=== PATIENT | female | born 1970 ===

== ENCOUNTER 2018-05-25 16:31 | Emergency (ER) | payer SELFPAY ==
--- NOTE | 2018-05-25 17:18 | ED PDOC ---
HPI: SOB/CHF/COPD Time Seen by Provider: 05/25/18 16:40 Chief Complaint (Nursing): Shortness Of Breath Chief Complaint (Provider): Shortness Of Breath History Per: Patient Onset/Duration Of Symptoms: Days (x2) Current Symptoms Are (Timing): Still Present Exacerbating Factor(s): Exertion, Laying Flat Additional Complaint(s): 48 year old female with a history of obstructive sleep apnea and hypothyroidism presents to the ED with two days of shortness of breath. Patient reports symptoms have been progressing for a long time, but have never been this bad. She states symptoms are worse with any exertion or when lying down flat. Patient also has intermittent unilateral left leg swelling which she states are due to varicose veins. Patient denies any chest pain, fever, or runny nose, but reports dry cough. She has been scheduled for a sleep study in May due to obstructive sleep apnea. PMD: Clinic Past Medical History Reviewed: Historical Data, Nursing Documentation, Vital Signs Vital Signs: Last Vital Signs Temp 98.1 F 05/25/18 16:37 Pulse 69 05/25/18 16:37 Resp 18 05/25/18 16:37 BP 134/72 05/25/18 16:37 Pulse Ox 99 05/25/18 16:37 - Medical History PMH: Hypothyroidism, Sleep Apnea (obstructive) Denies: HIV, Chronic Kidney Disease - Surgical History Surgical History: (x 1) - Family History Family History: States: Unknown Family Hx - Social History Current smoker - smoking cessation education provided: No Ex-Smoker (has not smoked in the last 12 months): No Alcohol: None Drugs: Denies - Allergies Allergies/Adverse Reactions: Allergies Allergy/AdvReac Type Severity Reaction Status Date / Time No Known Allergies Allergy Verified 04/28/16 11:53 Review of Systems ROS Statement: Except As Marked, All Systems Reviewed And Found Negative Constitutional: Negative for: Fever ENT: Positive for: Other (no runny nose) Cardiovascular: Negative for: Chest Pain Respiratory: Positive for: Cough (dry), Shortness of Breath Musculoskeletal: Positive for: Other (left leg swelling) Physical Exam - Reviewed Nursing Documentation Reviewed: Yes Vital Signs Reviewed: Yes - Physical Exam Appears: Positive for: Non-toxic, Uncomfortable Head Exam: Positive for: ATRAUMATIC, NORMOCEPHALIC Skin: Positive for: Warm, Dry Eye Exam: Positive for: EOMI, PERRL ENT: Negative for: Pharyngeal Erythema, Tonsillar Exudate Neck: Positive for: Painless ROM, Supple Cardiovascular/Chest: Positive for: Regular Rate, Rhythm. Negative for: Murmur Respiratory: Positive for: Normal Breath Sounds, Respiratory Distress (mild). Negative for: Accessory Muscle Use, Rales, Rhonchi, Wheezing Gastrointestinal/Abdominal: Positive for: Soft, Other (morbidly obese). Negative for: Tenderness Back: Positive for: Normal Inspection. Negative for: Decreased ROM Extremity: Positive for: Other (left lower leg edema and visible varicose veins). Negative for: Calf Tenderness Lymphatic: Negative for: Adenopathy Neurological/Psych: Positive for: Awake. Negative for: Motor/Sensory Deficits - Laboratory Results Result Diagrams: 05/25/18 17:15 05/25/18 18:17 - ECG ECG: Positive for: Interpreted By Me ECG Rhythm: Positive for: Normal QRS, Normal ST Segment, Sinus Rhythm O2 Sat by Pulse Oximetry: 99 (RA) Pulse Ox Interpretation: Normal - Radiology X-Ray: Interpreted by Ms X-Ray Interpretation: No Acute Disease - Progress ED Course And Treament: Name: RHETT CANDELARIA Exam Date: May 25, 2018 7:37:19 PM EDT Modality Type: CT\SR Description: CTA CHEST FOR PE Gender: F Laterality: Not applicable : 74 Referring Physician: Emergency Room direct number EXAM: CTA Chest with Intravenous Contrast for Pulmonary Embolism CLINICAL HISTORY: Sob, unilateral leg swelling TECHNIQUE: Axial CTA images of the chest with intravenous contrast using a pulmonary embolism protocol. Reconstructed images were created and reviewed. 393.00 mGy-cm CONTRAST: With; [id number] 99ML was administered without incident. COMPARISON: None provided. FINDINGS: PULMONARY ARTERIES No evidence of central or segmental pulmonary embolism is seen. AORTA There is no evidence for aneurysm or dissection of the thoracic aorta. LUNGS There is mild groundglass opacity both lungs and mild bullous changes. PLEURAL SPACES No evidence of pneumothorax. No pleural effusion. HEART Heart size is within normal limits. No significant pericardial effusion. LYMPH NODES No lymphadenopathy is evident. BONES No focal osseous abnormality or acute fracture. UPPER ABDOMEN Images of the upper abdomen are unremarkable. IMPRESSION: No evidence of pulmonary embolic disease. Mild groundglass opacity and bullous change both lungs. Electronically signed on May 25, 2018 8:03:19 PM EDT by: Pipe Jain M.D., Certified by [employer], Diagnostic Radiology Re-evaluation Time: 20:32 Condition: Improved (DW pt findings and plan of care. Stable for discharge.) Medical Decision Making Medical Decision Making: Time: 1655 Impression: Shortness of breath Differential diagnoses include but are not limited to: PE, CHF, pneumonia, effusion, bronchitis Plan: --Type and screen --CT Angio chest --EKG --BNP --CMP --Free T4 --magnesium --phosphorous --T3 --TSH --Troponin --U preg --U dip --CBC --PTT --PT/INR --CXR --US duplex Time: 1912 US Duplex: FINDINGS: DEEP VEINS: The common femoral, superficial femoral, and popliteal veins are echolucent and compressible. There is normal color Doppler flow throughout. The visualized calf veins appear patent. SUPERFICIAL VEINS: The visualized greater saphenous vein is patent. SOFT TISSUES: No popliteal fossa cyst or other abnormalities. IMPRESSION: No deep venous thrombosis evident on left lower extremity examination. Labs unremarkable CT neg for PE Pt feels better on reevaluation DW pt findings and pt stable for discharge to continue eval for sleep apnea. Pt eager to go home. - Scribe Attestation: Documented by Birdie Lazar, acting as a scribe for Ana Marion MD. Provider Scribe Attestation: All medical record entries made by the Scribe were at my direction and personally dictated by me. I have reviewed the chart and agree that the record accurately reflects my personal performance of the history, physical exam, medical decision making, and the department course for this patient. I have also personally directed, reviewed, and agree with the discharge instructions and disposition. Disposition - Clinical Impression Clinical Impression: Dyspnea Counseled Patient/Family Regarding: Studies Performed, Diagnosis, Need For Followup - Disposition Referrals: [facility] [Outside] Disposition: Routine/Home Disposition Time: 20:35 Condition: IMPROVED Instructions: Shortness of Breath (Dyspnea) (DC) Print Language: LAO
[2018-05-25 17:34] LABS: INR 1.1; PROTHROMBIN TIME 12.8 Seconds (9.8-13.1)
[2018-05-25 17:36] LABS: BASO % 0.5 % (0.0-2.0); EOS # 0.2 K/uL (0.0-0.7); EOS % 2.7 % (0.0-4.0); HEMOGLOBIN 13.9 g/dL (12.0-16.0); LYMPH # 1.9 K/uL (1.0-4.3); LYMPH % 23.1 % (20.0-40.0); MEAN CELL VOLUME 94.4 fl (81.0-99.0); MEAN CORPUSCULAR HEMOGLOBIN 31.7 pg (27.0-31.0); MEAN CORPUSCULAR HGB CONC 33.6 g/dL (33.0-37.0); MEAN PLATELET VOLUME 10.8 fl (7.2-11.7); MONO # 0.7 K/uL (0.0-0.8); MONO % 8.3 % (0.0-10.0); NEUT # 5.3 K/uL (1.8-7.0); NEUT % 65.4 % (50.0-75.0); NRBC % 0.2 % (0.0-0.0); PARTIAL THROMBOPLASTIN TIME 35.4 Seconds (25.6-37.1); RBC 4.39 Mil/uL (3.80-5.20); RED CELL DISTRIBUTION WIDTH 13.2 % (11.5-14.5); WHITE BLOOD COUNT 8.2 K/uL (4.8-10.8)
[2018-05-25] MEDS ORDERED: Sodium Chloride 0.9% 50 ML IV ONE (18:30)
[2018-05-25] MEDS ORDERED: Iodixanol 320 MG/ML 100 ML BOTTLE IV ONE (18:30)
[2018-05-25 18:42] LABS: ALB/GLOB RATIO 1.1 (1.0-2.1); ALBUMIN 4.2 g/dL (3.5-5.0); ALT/SGPT 39 U/L (9-52); AST/SGOT 42 U/L (14-36); BLOOD UREA NITROGEN 13 mg/dl (7-17); CALCIUM 9.8 mg/dL (8.4-10.2); GFR NON-AFRICAN AMERICAN > 60
[2018-05-25 20:59] VITALS: BP 141/83; PULSE 66; RESP 18; TEMP 98.2; O2SAT 98
--- NOTE | 2018-05-26 11:36 | CT ---
Date of service: 05/25/2018 PROCEDURE: CT Chest with contrast (Pulmonary Angiogram) HISTORY: SOB and unilateral leg swelling COMPARISON: None available. TECHNIQUE: Axial computed tomography images were obtained of the chest in the pulmonary arterial phase of enhancement. Coronal and sagittal reformatted images were created and reviewed. Intravenous contrast dose: 99 cc Visipaque 320 however a has a common Radiation dose: Total exam DLP = 393.86 mGy-cm. This CT exam was performed using one or more of the following dose reduction techniques: Automated exposure control, adjustment of the mA and/or kV according to patient size, and/or use of iterative reconstruction technique. FINDINGS: This examination is limited to evaluate pulmonary embolus due to suboptimal opacification of the pulmonary arteries.. This study is further limited by morbid obesity. PULMONARY ARTERIES: Visualized pulmonary trunk, right and left main, lobar, ends of dental branches of the pulmonary arteries are relatively well opacified with no definitive evidence to suggest acute central pulmonary embolus. Note however that the subsegmental branches are poorly delineated. Pulmonary trunk measures approximately 2.8 cm; rule out underlying mild pulmonary arterial hypertension.. AORTA: No acute findings. No thoracic aortic aneurysm. Ascending thoracic aorta measures approximately 2.6 cm and descending thoracic aorta measures approximately 2.0 cm. Minimal aortic atherosclerotic calcification or mural plaque present. LUNGS: There are patchy areas of ground-glass opacity seen throughout the upper and lower lobes. Mild discoid type atelectasis and/or scarring seen in the left lingular region. PLEURAL SPACES: Unremarkable. No effusion or pneumothorax. HEART: Heart is enlarged. No significant pericardial effusion. LYMPH NODES: No significant mediastinal or hilar lymphadenopathy. Trachea midline and patent with no large central endoluminal lesions. There is a small hiatal hernia. BONES, CHEST WALL: Mild multilevel degenerative spondylosis of the thoracic spine. OTHER FINDINGS: Unremarkable. IMPRESSION: Limited study as above. No definitive evidence of acute central pulmonary embolus. There are patchy areas of ground-glass opacity seen throughout the upper and lower lobes. Mild cardiomegaly. Rule out mild underlying pulmonary arterial hypertension.
--- NOTE | 2018-05-26 13:04 | RAD ---
Date of service: 05/25/2018 HISTORY: SOB COMPARISON: Comparison chest dated 04/04/2016 TECHNIQUE: Chest PA and lateral views FINDINGS: LUNGS: No active pulmonary disease. PLEURA: No significant pleural effusion identified. No pneumothorax apparent. CARDIOVASCULAR: No aortic atherosclerotic calcification present. Normal cardiac size. No pulmonary vascular congestion. OSSEOUS STRUCTURES: Minor multilevel degenerative spondylosis of the thoracic spine VISUALIZED UPPER ABDOMEN: Normal. OTHER FINDINGS: None. IMPRESSION: No active disease.
--- NOTE | 2018-05-26 14:15 | US ---
Date of service: 2018-05-25 18:19:15 PROCEDURE: Left lower extremity venous duplex Doppler. HISTORY: Leg swelling COMPARISON: Comparison made with prior bilateral lower extremity DVT study 04/04/2016. TECHNIQUE: Common femoral, superficial femoral, popliteal and posterior tibial veins were evaluated. Flow was assessed with color Doppler, compressibility, assessment of phasic flow and augmentation response. FINDINGS: COMMON FEMORAL VEIN: Unremarkable. SUPERFICIAL FEMORAL VEIN: Unremarkable. POPLITEAL VEIN: Unremarkable. POSTERIOR TIBIAL VEIN: Unremarkable. OTHER FINDINGS: None. IMPRESSION: No evidence of deep venous thrombosis in the lower extremity.
--- NOTE | 2018-05-26 17:40 | CARD ---
APPROVED REPORT Date of service: 05/25/2018 EKG Measurement Heart [id number] <Conclusion> Normal sinus rhythm Normal ECG
== END 2018-05-25 21:27 | disposition home or self-care (01) ==
LOC: H.ER 16:31
DX: R06.00 Dyspnea, unspecified (principal); G47.33 Obstructive sleep apnea (adult) (pediatric); E03.9 Hypothyroidism, unspecified; R60.0 Localized edema
CPT/HCPCS: 71046; 71275; 80053; 81025; 84439; 85025; 85610; 85730; 86850; 86900; 93005; 93971; 99284; Q9967